=== PATIENT | male | born 1955 | race Caucasian/White ===

== ENCOUNTER 2018-06-14 10:08 | Emergency (ER) | payer OTHER, SELFPAY ==
[2018-06-14] VITALS (13 sets, daily range): BP systolic 122–132; BP diastolic 77–106; PULSE 91–119; RESP 20; TEMP 36.7; O2SAT 89–98
--- NOTE | 2018-06-14 10:22 | W.ED.GENAD ---
Discharge Plan Disposition Patient Disposition: HOME Condition: Improving Discharge Details Chief Complaint: Chest Pain Clinical Impression: Asthma exacerbation in COPD, Transaminitis Reason For Visit: CHERY Primary Care Provider: Beth,Local ED Provider: Guillermo Romo Home Meds and New Rx's Prescriptions: New prednisone 20 mg tablet 40 mg PO DAILY 5 Days Qty: 10 RF: 0 albuterol sulfate 90 mcg/actuation HFA aerosol inhaler 1 puff IH Q6H PRN (Reason: shortness of breath) Qty: 8 RF: 0 Continued sertraline 100 mg Tablet 100 mg PO DAILY RF: 0 clonazepam 2 mg Tablet 5 mg PO TID RF: 0 gabapentin 300 mg Capsule 1,200 mg PO TID RF: 0 prazosin 2 mg Capsule 2 mg PO BID RF: 0 bupropion HCl 150 mg Tablet Extended Release 24 Hr 150 mg PO DAILY RF: 0 Discharge Instructions Instructions: COPD (Chronic Obstructive Pulmonary Disease) (ED) Additional Instructions: You need to diminish smoking and alcohol use. Your liver showed mild elevations of your LFTs in the mid 100s. Your liver function should be rechecked by her regular doctor at the [place]. Continue your regular medications. Please take prednisone as prescribed. May use your prescribed inhaler and I have given you an additional prescription for albuterol to be used if needed. Return for any acute concern. Please followup with the [facility] for recheck in the next 3-5 days Discharge Data Discharge Date/Time-TO BE ENTERED AT DEPARTURE: 06/14/18 14:02 Medical Decision Making 65-year-old male who lives in a cabin in [place]. States he was in [place] partying for a few days with a girlfriend. He was placed in [facility] last night. This morning after release he developed shortness of breath, shaking, tightness of the chest that was transient and improved by the time of arrival. He was transported by EMS. IV was placed he was given fluids and Zofran, Ativan prednisone. Screening EKG obtained, patient referred for chest x-ray. Patient given prednisone and inhaled DuoNeb. Patient admitted to significant and chronic alcohol use. He did benefit from benzodiazepine administered in the ED. Patient CBC is reassuring with a white count 6, hematocrit 38, but was 140. Chemistries with normal sodium 137, potassium 3.9, bicarb 25, BUN 7, creatinine 0.8. Magnesium noted at 1.6. Glucose normal. AST 157, ALT 154. Troponin negative. Lipase unremarkable. Chest x-ray without acute finding . We will treat for COPD exacerbation. He is given a burst of prednisone. Patient improved and given a meal. He was offered and then requested to speak with a substance abuse motor coach operator. Transport was arranged back to his home in [facility]. Lab Data Lab results reviewed: Yes I reviewed the patient's lab results. Laboratory Results - last 24 hr 06/14/18 06/14/18 10:43 10:43 WBC 6.07 RBC 4.03 L Hgb 13.8 Hct 38.7 L MCV 96.0 H MCH 34.2 H MCHC 35.7 RDW 14.5 H Plt Count 147 MPV 11.0 Immature Gran % 0.2 Neutrophils % 73.5 Lymphocytes % 13.5 Monocytes % 12.0 Eosinophils % 0.3 Basophils % 0.5 Absolute Neutrophils 4.46 Absolute Lymphocytes 0.82 L Absolute Monocytes 0.73 H Absolute Eosinophils 0.02 Absolute Basophils 0.03 Sodium 137 Potassium 3.9 Chloride 99 Carbon Dioxide 25.1 Anion Gap 12.9 H BUN 7 Creatinine 0.86 Estimated GFR/1.73 m2 >= 60.00 Glucose 95 Calcium 8.7 Magnesium 1.6 L Total Bilirubin 1.0 AST 157 H ALT 154 H Alkaline Phosphatase 105 Troponin I < 0.02 Total Protein 7.4 Albumin 3.9 Lipase 98 ECG Data Attestation: I personally reviewed and interpreted this ECG (s) as follows: Interpretation: Normal sinus rhythm, the rate is 92, QRS is narrow, there is no ST segment elevation HPI General Mode of arrival: EMS. Date/Time Provider Initiated Documentation: 06/14/18 10:11. Limitations to Documentation: no limitations. Information obtained by: patient and EMS. History of Present Illness 62 year old M presents to the emergency department with the chief complaint of Shortness of breath and shaking, described as moderate, Quality is described as burning, and is localized to the chest. Patient abdomen. Patient started experiencing this minute(s) and it has been now resolved. No relieving factors improve symptom(s), No exacerbating factors reported . Patient notes no other symptoms.. Patient did receive the following treatments prior to arrival, other (Zofran) Related Data Home Medications Medication Instructions Recorded Confirmed albuterol sulfate 1 puff IH Q6H PRN #8 gm 06/14/18 bupropion HCl 150 mg PO DAILY 06/14/18 06/14/18 clonazepam 5 mg PO TID 06/14/18 06/14/18 gabapentin 1,200 mg PO TID 06/14/18 06/14/18 prazosin 2 mg PO BID 06/14/18 06/14/18 prednisone 40 mg PO DAILY 5 Days #10 tab 06/14/18 sertraline 100 mg PO DAILY 06/14/18 06/14/18 Previous Rx's Medication Instructions Recorded albuterol sulfate 1 puff IH Q6H PRN #8 gm 06/14/18 prednisone 40 mg PO DAILY 5 Days #10 tab 06/14/18 Allergies Allergy/AdvReac Type Severity Reaction Status Date / Time No Known Allergies Allergy Unverified 06/14/18 10:24 Review of Systems Review of Systems 6 systems reviewed and otherwise - [facility] Medical History Alcohol abuse (Chronic) Depression (Chronic) Social History Smoking/Tobacco Use Status: Current every day Tobacco Type: cigarettes Alcohol Intake: current Alcohol Intake frequency: 3 or more drinks per day Alcohol type: beer Drug use: Daily Substance use type: marijuana Do you feel safe at home: Yes Do you feel safe in your relationship?: Yes Exam Narrative Exam Narrative: GEN: awake, alert, oriented 3. Pleasant, anxious, interactive. HEAD: Normocephalic, atraumatic ENT: Mucous membranes moist, oropharynx partially edentulous, External ear exam unremarkable EYES: PERRL, EOMI NECK: Full ROM, no CHELSIE, no menigismus CHEST/RESP: Nontender, clear to auscultation bilateral, no wheeze/rhonchi/rales CARDIOVASCULAR: RRR, no murmur, rub andrade. 2+ Rad pulse bilateral ABDOMEN: Soft, nontender, no mass. +Bowel sounds EXT: Full ROM, no edema, no rash Neuro: Grossly normal neurologic exam, conversant, interactive. Mild tremor right hand. Psych: Speech fluent, thoughts congruent, affect anxious
--- NOTE | 2018-06-14 10:26 | ED.GENADUL_ITS ---
Discharge Plan Disposition Patient Disposition: HOME Condition: Improving Discharge Details Chief Complaint: Chest Pain Clinical Impression: Asthma exacerbation in COPD, Transaminitis Reason For Visit: CHERY Primary Care Provider: Beth,Local ED Provider: Guillermo Romo Home Meds and New Rx's Prescriptions: New prednisone 20 mg tablet 40 mg PO DAILY 5 Days Qty: 10 RF: 0 albuterol sulfate 90 mcg/actuation HFA aerosol inhaler 1 puff IH Q6H PRN (Reason: shortness of breath) Qty: 8 RF: 0 Continued sertraline 100 mg Tablet 100 mg PO DAILY RF: 0 clonazepam 2 mg Tablet 5 mg PO TID RF: 0 gabapentin 300 mg Capsule 1,200 mg PO TID RF: 0 prazosin 2 mg Capsule 2 mg PO BID RF: 0 bupropion HCl 150 mg Tablet Extended Release 24 Hr 150 mg PO DAILY RF: 0 Discharge Instructions Instructions: COPD (Chronic Obstructive Pulmonary Disease) (ED) Additional Instructions: You need to diminish smoking and alcohol use. Your liver showed mild elevations of your LFTs in the mid 100s. Your liver function should be rechecked by her regular doctor at the [facility]. Continue your regular medications. Please take prednisone as prescribed. May use your prescribed inhaler and I have given you an additional prescription for albuterol to be used if needed. Return for any acute concern. Please followup with the [facility] for recheck in the next 3-5 days Discharge Data Discharge Date/Time-TO BE ENTERED AT DEPARTURE: 06/14/18 14:02 Medical Decision Making 65-year-old male who lives in a cabin in [place]. States he was in [place] partying for a few days with a girlfriend. He was placed in [facility] last night. This morning after release he developed shortness of breath, shaking, tightness of the chest that was transient and improved by the time of arrival. He was transported by EMS. IV was placed he was given fluids and Zofran, Ativan prednisone. Screening EKG obtained, patient referred for chest x-ray. Patient given prednisone and inhaled DuoNeb. Patient admitted to significant and chronic alcohol use. He did benefit from benzodiazepine administered in the ED. Patient CBC is reassuring with a white count 6, hematocrit 38, but was 140. Chemistries with normal sodium 137, potassium 3.9, bicarb 25, BUN 7, creatinine 0.8. Magnesium noted at 1.6. Glucose normal. AST 157, ALT 154. Troponin negative. Lipase unremarkable. Chest x-ray without acute finding . We will treat for COPD exacerbation. He is given a burst of prednisone. Patient improved and given a meal. He was offered and then requested to speak with a substance abuse power and recovery shift engineer. Transport was arranged back to his home in [facility]. Lab Data Lab results reviewed: Yes I reviewed the patient's lab results. Laboratory Results - last 24 hr 06/14/18 06/14/18 10:43 10:43 WBC 6.07 RBC 4.03 L Hgb 13.8 Hct 38.7 L MCV 96.0 H MCH 34.2 H MCHC 35.7 RDW 14.5 H Plt Count 147 MPV 11.0 Immature Gran % 0.2 Neutrophils % 73.5 Lymphocytes % 13.5 Monocytes % 12.0 Eosinophils % 0.3 Basophils % 0.5 Absolute Neutrophils 4.46 Absolute Lymphocytes 0.82 L Absolute Monocytes 0.73 H Absolute Eosinophils 0.02 Absolute Basophils 0.03 Sodium 137 Potassium 3.9 Chloride 99 Carbon Dioxide 25.1 Anion Gap 12.9 H BUN 7 Creatinine 0.86 Estimated GFR/1.73 m2 >= 60.00 Glucose 95 Calcium 8.7 Magnesium 1.6 L Total Bilirubin 1.0 AST 157 H ALT 154 H Alkaline Phosphatase 105 Troponin I < 0.02 Total Protein 7.4 Albumin 3.9 Lipase 98 ECG Data Attestation: I personally reviewed and interpreted this ECG (s) as follows: Interpretation: Normal sinus rhythm, the rate is 92, QRS is narrow, there is no ST segment elevation HPI General Mode of arrival: EMS . Date/Time Provider Initiated Documentation: 06/14/18 10:11 . Limitations to Documentation: no limitations . Information obtained by: patient and EMS . History of Present Illness 62 year old M presents to the emergency department with the chief complaint of Shortness of breath and shaking, described as moderate, Quality is described as burning, and is localized to the chest. Patient abdomen. Patient started experiencing this minute(s) and it has been now resolved. No relieving factors improve symptom(s), No exacerbating factors reported . Patient notes no other symptoms.. Patient did receive the following treatments prior to arrival, other (Zofran) Related Data Home Medications Medication Instructions Recorded Confirmed albuterol sulfate 1 puff IH Q6H PRN #8 gm 06/14/18 bupropion HCl 150 mg PO DAILY 06/14/18 06/14/18 clonazepam 5 mg PO TID 06/14/18 06/14/18 gabapentin 1,200 mg PO TID 06/14/18 06/14/18 prazosin 2 mg PO BID 06/14/18 06/14/18 prednisone 40 mg PO DAILY 5 Days #10 tab 06/14/18 sertraline 100 mg PO DAILY 06/14/18 06/14/18 Previous Rx's Medication Instructions Recorded albuterol sulfate 1 puff IH Q6H PRN #8 gm 06/14/18 prednisone 40 mg PO DAILY 5 Days #10 tab 06/14/18 Allergies Allergy/AdvReac Type Severity Reaction Status Date / Time No Known Allergies Allergy Unverified 06/14/18 10:24 Review of Systems Review of Systems 6 systems reviewed and otherwise - [facility] Medical History Alcohol abuse (Chronic) Depression (Chronic) Social History Smoking/Tobacco Use Status: Current every day Tobacco Type: cigarettes Alcohol Intake: current Alcohol Intake frequency: 3 or more drinks per day Alcohol type: beer Drug use: Daily Substance use type: marijuana Do you feel safe at home: Yes Do you feel safe in your relationship?: Yes Exam Narrative Exam Narrative: GEN: awake, alert, oriented 3. Pleasant, anxious, interactive. HEAD: Normocephalic, atraumatic ENT: Mucous membranes moist, oropharynx partially edentulous, External ear exam unremarkable EYES: PERRL, EOMI NECK: Full ROM, no CHELSIE, no menigismus CHEST/RESP: Nontender, clear to auscultation bilateral, no wheeze/rhonchi/rales CARDIOVASCULAR: RRR, no murmur, rub andrade. 2+ Rad pulse bilateral ABDOMEN: Soft, nontender, no mass. +Bowel sounds EXT: Full ROM, no edema, no rash Neuro: Grossly normal neurologic exam, conversant, interactive. Mild tremor right hand. Psych: Speech fluent, thoughts congruent, affect anxious
[2018-06-14 10:51] LABS: Abs Immature Grans 0.01 k/cumm (0.0-0.09); Absolute Basophil Count 0.03 k/cumm (0.0-0.2); Absolute Eosinophil Count 0.02 k/cumm (0.0-0.7); Absolute Lymphocyte Count 0.82 k/cumm (1.2-3.4); Absolute Monocyte Count 0.73 k/cumm (0.11-0.7); Absolute Neutrophil Count 4.46 k/cumm (1.2-6.7); Basophils % 0.5; Eosinophils % 0.3; HCT 38.7 % (40.0-50.0); HGB 13.8 g/dL (13.5-17.5); Immature Grans % 0.2; Lymphocytes % 13.5; Mean Corp. HGB Concentration 35.7 g/dL (32.0-36.0); Mean Corpuscular Hemoglobin 34.2 pg (27.0-33.0); Neutrophils % 73.5; Platelet Count 147 x1000/uL (130-400); RBC 4.03 m/cumm (4.50-6.00); RBC Distribution Width 14.5 % (11.8-14.1); White Blood Cell Count 6.07 k/cumm (4.4-10.8)
[2018-06-14 11:07] LABS: ALT 154 U/L (12-78); AST 157 U/L (15-37); Albumin 3.9 g/dL (3.4-5.0); Alkaline Phosphatase 105 U/L (46-116); Anion Gap 12.9 mmol/L (3-11); BUN 7 mg/dL (7-18); CO2 25.1 mmol/L (21.0-32.0); CREATININE 0.86 mg/dL (0.70-1.30); Calcium 8.7 mg/dL (8.5-10.1); Chloride 99 mmol/L (98-107); Glucose 95 mg/dL (70-100); Lipase 98 U/L (73-393); Magnesium 1.6 mg/dL (1.8-2.4); Potassium 3.9 mmol/L (3.5-5.1); Sodium 137 mmol/L (136-145); Total Protein 7.4 g/dL (6.4-8.2)
[2018-06-14 11:11] LABS: Troponin I < 0.02 ng/mL (0.00-0.06)
[2018-06-14] MEDS: Albuterol/Ipratropium 3 ML UPD VIAL UPD (11:16)
[2018-06-14] MEDS: LORazepam 2 MG/ML VIAL 1 MG IVP (11:17)
--- NOTE | 2018-06-14 11:22 | DI.RAD_ITS ---
SYMPTOM/DIAGNOSIS: CHEST PAIN, SOB, SMOKER FRONTAL AND LATERAL CHEST: No priors. Heart size and pulmonary vasculature are within normal limits. The lungs are clear. The lungs appear hyperinflated with flattened diaphragms suggesting underlying COPD. No effusions or pneumothoraces are identified. Degenerative changes are seen in the spine. IMPRESSION: No acute pulmonary process.
[2018-06-14] MEDS: predniSONE 10 MG TAB (11:25)
--- NOTE | 2018-06-14 11:53 | DI.VRAD_ITS ---
EXAM: XR Chest, 2 Views EXAM DATE/TIME: 06/14/2018 10:23 AM CLINICAL HISTORY: 65 years old, male; Signs and symptoms; Shortness of breath; Patient HX: Chest pain, SOB, smoker. TECHNIQUE: XR of the chest, 2 views. COMPARISON: No relevant prior studies available. FINDINGS: Lungs: Hyperinflation and interstitial changes consistent with COPD, without focal consolidation or mass. Pleural space: Unremarkable. No pleural effusion. No pneumothorax. Heart/Mediastinum: Unremarkable. No cardiomegaly. Bones/joints: Unremarkable. IMPRESSION: No acute abnormality. Dictated and Authenticated by: Fang Malcolm MD. Ordering:MICHAEL Li MD
[2018-06-14] MEDS: Diazepam 5 MG TAB PO (12:30)
[2018-06-14] MEDS: LORazepam 2 MG/ML VIAL 0.5 MG IVP (12:50)
== END 2018-06-14 14:02 | disposition home or self-care (01) ==
LOC: ER 13:30
PROVIDERS: Emergency Provider Emergency Medicine
DX: J44.1 Chronic obstructive pulmonary disease with (acute) exacerbation (principal); R74.0 Nonspecific elevation of levels of transaminase and lactic acid dehydrogenase [LDH]; F17.210 Nicotine dependence, cigarettes, uncomplicated
CPT/HCPCS: 36415; 80053; 83690; 93005; 94640; 96374; 96376; 99285; 71046; 83735; 84484; 85025; 93010; 99284; J2060; J7512; J7620